=== PATIENT | male | born 1975 | race Caucasian/White ===

== ENCOUNTER 2023-11-22 19:29 | Emergency (ER) | payer SELFPAY ==
[~2023-11-22] VITALS: Ht 180.3 cm; Wt 77.1 kg
[~2023-11-22 19:29] MED LIST: ALPR1; AMOX500 PO; CEPH500 PO; CIPR500 PO; HYDACE5 PO; IBUP800 PO; OXYC5 PO; RXHYDACE PO; [UNRECOGNIZED DRUG - CODE]; [UNRECOGNIZED DRUG - OTHER] PO
== END 2023-11-22 21:30 | disposition home or self-care (01) ==
LOC: ER 19:29
DX: S61.012A Laceration without foreign body of left thumb without damage to nail, initial encounter (principal); W26.0XXA Contact with knife, initial encounter; F17.210 Nicotine dependence, cigarettes, uncomplicated
CPT/HCPCS: 12001; 99282-25